=== PATIENT | female | born 1965 | race African-American/Black ===

== ENCOUNTER 2020-03-29 02:48 | Emergency (ER) | payer MEDICAID, OTHER ==
[~2020-03-29] VITALS: Ht 177.8 cm; Wt 162.3 kg
[~2020-03-29 02:48] MED LIST: BP MED PO
[2020-03-29] MEDS ORDERED: DIPHENHYDRAMINE 50 MG/ML, 1ML ONE (03:16)
[2020-03-29] MEDS ORDERED: KETOROLAC 30 MG/1 ML ONE (03:16)
[2020-03-29] MEDS ORDERED: PROCHLORPERAZINE 5 MG/ML, 2ML ONE (03:16)
[2020-03-29] MEDS ORDERED: KETOROLAC 30 MG/1 ML IVPush ONE (03:30)
[2020-03-29] MEDS ORDERED: PROCHLORPERAZINE 5 MG/ML, 2ML IVPush ONE (03:30)
[2020-03-29] MEDS ORDERED: DIPHENHYDRAMINE 50 MG/ML, 1ML IVPush ONE (03:30)
[2020-03-29 04:36] VITALS: BP 154/72
== END 2020-03-29 04:42 | disposition home or self-care (01) ==
LOC: ED 03:18
DX: G44.219 Episodic tension-type headache, not intractable (principal); R11.0 Nausea; I10 Essential (primary) hypertension
CPT/HCPCS: 96374; 96375; 99284; J0780; J1200; J1885